=== PATIENT | male | born 1990 | race Caucasian/White ===

== ENCOUNTER 2020-07-23 18:15 | Emergency (ER) | payer OTHER ==
[2020-07-23 18:19] VITALS: BP 141/89; PULSE 109; TEMP 98.4; BMI 41.1
[2020-07-23] MEDS ORDERED: predniSONE 20 MG TABLET (UD) PO ONE (19:42)
[2020-07-23] MEDS ORDERED: ALBUTEROL SO4 2.5/IPRATROPIUM 0.5 INH SOL 3 ML VIAL.NEB. NEB ONE ×2 (19:51→21:02)
[2020-07-23] MEDS ORDERED: predniSONE 20 MG TABLET (UD) ONE (19:51)
[2020-07-23] MEDS: ALBUTEROL SO4 2.5/IPRATROPIUM 0.5 INH SOL 3 ML VIAL.NEB. NEB SCH ×6 (19:56→21:45)
[2020-07-23] MEDS ORDERED: ALBUTEROL SO4 0.083% IH SOL 2.5 MG/3 ML VIAL.NEB. NEB SCH (21:15)
== END 2020-07-23 22:30 | disposition home or self-care (01) ==
LOC: JER 18:15
PROC: 3E0F7GC Introduction of Other Therapeutic Substance into Respiratory Tract, Via Natural or Artificial Opening (ICD-10-PCS; principal; 2020-07-23)
DX: J45.21 Mild intermittent asthma with (acute) exacerbation (principal); J06.9 Acute upper respiratory infection, unspecified
CPT/HCPCS: 93005; 93010; 99284-25; C9803; U0003